=== PATIENT | male | born 1965 | race Two or more races ===

== ENCOUNTER 2017-03-04 19:39 | Emergency (ER) | payer OTHER ==
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
[~2017-03-04 19:39] MED LIST: ACETAMINOPHEN PO; NO MEDICATIONS; VICODIN 5/1 TAB 5/50 PO; VOLTAREN50 MG PO; VOLTAREN75 MG PO
[2017-03-04 20:29] LABS: BASOPHIL# 0.1 X10e3 (0-0.3); BASOPHIL% 2.2 % (0-2.5); EOSINOPHIL# 0.1 X10e3 (0-0.7); EOSINOPHIL% 2.2 % (0.0-7.0); HEMATOCRIT 37.7 % (38.0-50.0); HEMOGLOBIN 12.9 gm/dL (13.0-16.0); LYMPHOCYTE# 1.4 X10e3 (1.0-3.5); LYMPHOCYTE% 35.3 % (17.0-45.0); MEAN CELL VOLUME 100.6 FL (83-96); MEAN CORPUSCULAR HEMOGLOBIN 34.4 PG (28-34); MEAN CORPUSCULAR HGB CONC 34.2 g/dL (30-36); MONOCYTE# 0.4 X10e3 (0-1.0); MONOCYTE% 9.3 % (3.0-12.0); PLATELET COUNT 131 X10e3 (140-420); RED BLOOD COUNT 3.74 X10e (3.90-5.60); RED CELL DISTRIBUTION WIDTH 13.9 % (11.0-15.5); WHITE BLOOD COUNT 3.9 X10e3 (4.0-10.5)
[2017-03-04 20:31] LABS: DIFF IND NO
[2017-03-04 20:47] LABS: CALCIUM SERUM 8.7 mg/dL (8.4-10.2); CREATININE SERUM 0.5 mg/dL (0.6-1.4); GLOM FILT RATE Estimated 124.6 mL/min (>60); POTASSIUM 3.6 mmol/L (3.5-5.1)
[2017-03-04 20:55] LABS: URINE SOURCE CLEAN CATCH
[2017-03-04 20:58] LABS: URINE APPEARANCE CLEAR; URINE BILIRUBIN NEG (NEG); URINE BLOOD NEG (NEG); URINE COLOR YELLOW; URINE GLUCOSE NEG (NORM); URINE KETONE NEG (NEG); URINE LEUKOCYTE ESTERASE NEG (NEG); URINE NITRATE NEG (NEG); URINE PH 5.5 (5-8); URINE PROTEIN NEG (NEG); URINE SPECIFIC GRAVITY <=1.005 (1.003-1.035); URINE UROBILINOGEN 0.2 MG/DL (NORM)
[2017-03-04 21:00] LABS: MICRO INDICATED? NO
[2017-03-04 21:08] LABS: AMPHETAMINE NEG (NEG); BARBITURATES NEG (NEG); BENZODIAZEPINES NEG (NEG); COCAINE NEG (NEG); MARIJUANA NEG (NEG); OPIATES NEG (NEG); TRICYCLIC ANTIDEPRESSANTS NEG (NEG); U METHADONE NEG (NEG)
== END 2017-03-05 07:21 | disposition home or self-care (01) ==
LOC: SED 19:39
PROVIDERS: Emergency Medicine
DX: S13.4XXA Sprain of ligaments of cervical spine, initial encounter (principal); S00.83XA Contusion of other part of head, initial encounter; F10.10 Alcohol abuse, uncomplicated; X58.XXXA Exposure to other specified factors, initial encounter; Y92.69 Other specified industrial and construction area as the place of occurrence of the external cause
CPT/HCPCS: 36415; 70450; 70486; 72125; 80048; 80307; 81003; 85025; 96374; 96375; 99284; G0480; J3411; J3475

== ENCOUNTER 2017-04-15 15:46 | Emergency (ER) | payer OTHER ==
--- NOTE | ~2017-04-15 | CT71 ---
[facility] A Service [facility] RADIOLOGY TEXT RESULTS PATIENT: CONNIE WOODS LOCATION: SED : 63 UNIT #: [id number] AGE: [address]: Fabricio Jay MD SEX: M ORDER DR: [id number] [place] [address] [id number] E MR#: [id number] Acc #: [id number] NAME: CONNIE WOODS : 1965 SEX: M STUDY DATE/TIME: 04/15/2017 16:31 UNIT: SED ROOM: STUDY DESCRIPTION: CT Head Wo Contrast Attending Physician: Fabricio Jay M.D. Ordering Physician: Fabricio Jay M.D. Primary Care Physician: Geo Frederick M.D. MEDICAL IMAGING REPORT This report is preliminary unless electronic signature is present. EXAM CT brain without contrast HISTORY Seizure today. TECHNIQUE This CT exam was performed with one or more of the following radiation dose reduction techniques: automatic exposure control, adjustment of mA and/or kV according to patient size, and iterative reconstruction. FINDINGS CT brain without contrast demonstrates no intracranial hemorrhage, mass or edema. No midline shift or ventricular dilatation or extraaxial fluid collection. Exam sensitivity partly limited by motion. Opacification of the visualized superior left maxillary sinus. IMPRESSION 1. Negative CT brain. 2. Opacified left maxillary sinus. Dictated by... Lit Hanley M.D. THIS IS AN ELECTRONICALLY VERIFIED REPORT Lit Hanley M.D. at 04/15/2017 11:14 PM DFL/pcl TD: 04/15/2017 22:59 JOB #: [id number] [facility] A Service [facility] RADIOLOGY TEXT RESULTS PATIENT: CONNIE WOODS LOCATION: SED : 63 UNIT #: [id number] AGE: [address]: Fabricio Jay MD SEX: M ORDER DR: MEDICAL IMAGING REPORT Page 1 of 1
--- NOTE | ~2017-04-15 | CR72 ---
[facility] A Service of [facility] RADIOLOGY TEXT RESULTS PATIENT: CONNIE WOODS LOCATION: SED : 63 UNIT #: [id number] AGE: [address]: Fabricio Jay MD SEX: M ORDER DR: [id number] [place] [address] [id number] E MR#: [id number] Acc #: [id number] NAME: CONNIE WOODS : 1965 SEX: M STUDY DATE/TIME: 04/15/2017 16:50 UNIT: SED ROOM: STUDY DESCRIPTION: CR Chest Single View Portable Attending Physician: Fabricio Jay M.D. Ordering Physician: Fabrciio Jay M.D. Primary Care Physician: Geo Frederick M.D. MEDICAL IMAGING REPORT This report is preliminary unless electronic signature is present. EXAM Portable AP view of the chest COMPARISON June 12, 2012. INDICATION 51-year-old male with sudden onset of dyspnea and oxygen desaturation today. FINDINGS Cardiomediastinal silhouette is within normal limits. No evidence of pneumothorax. Prominence of the pulmonary interstitium appears stable going back to 2011. No evidence of acute airspace disease or pleural effusion. Healed fracture of the distal right clavicle. This is new from 2011. IMPRESSION No acute radiographic abnormality of the chest. Healed fracture of the right clavicle, new from 2011. Dictated by... Sivakumar Kim M.D. THIS IS AN ELECTRONICALLY VERIFIED REPORT Sivakumar Kim M.D. at 04/20/2017 8:04 PM BLM/bert TD: 04/15/2017 22:59 JOB #: [id number] [facility] A Service of [facility] RADIOLOGY TEXT RESULTS PATIENT: CONNIE WOODS LOCATION: SED : 63 UNIT #: [id number] AGE: [address]: Fabricio Jay MD SEX: M ORDER DR: MEDICAL IMAGING REPORT Page 1 of 1
[2017-04-15 16:58] LABS: BASOPHIL# 0.1 X10e3 (0-0.3); BASOPHIL% 0.9 % (0-2.5); EOSINOPHIL% 0.1 % (0.0-7.0); HEMATOCRIT 43.6 % (38.0-50.0); HEMOGLOBIN 14.9 gm/dL (13.0-16.0); LYMPHOCYTE# 0.5 X10e3 (1.0-3.5); LYMPHOCYTE% 8.3 % (17.0-45.0); MEAN CELL VOLUME 104.1 FL (83-96); MEAN CORPUSCULAR HEMOGLOBIN 35.7 PG (28-34); MEAN CORPUSCULAR HGB CONC 34.3 g/dL (30-36); MONOCYTE# 0.8 X10e3 (0-1.0); MONOCYTE% 13.5 % (3.0-12.0); NEUTROPHIL# 4.7 X10e3 (1.5-7.1); NEUTROPHIL% 77.2 % (40-75); PLATELET COUNT 143 X10e3 (140-420); RED BLOOD COUNT 4.18 X10e (3.90-5.60); WHITE BLOOD COUNT 6.1 X10e3 (4.0-10.5)
[2017-04-15 17:03] LABS: DIFF IND NO
[2017-04-15 17:09] LABS: ALBUMIN SERUM 4.6 g/dL (3.5-5.0); BILIRUBIN,TOTAL 1.2 mg/dL (0.2-2.0); BUN/CREATININE RATIO 8.57; CALCIUM SERUM 9.9 mg/dL (8.4-10.2); CREATININE SERUM 0.7 mg/dL (0.6-1.4); GLOM FILT RATE Estimated 108.5 mL/min (>60); POTASSIUM 3.7 mmol/L (3.5-5.1); PROTEIN TOTAL SERUM 9.2 g/dL (6.0-8.3)
[2017-04-15 17:38] LABS: URINE SOURCE CLEAN CATCH
[2017-04-15 17:39] LABS: POC - CKMB 3.7 ng/mL (0.0-7.9); POC - TROPONIN <0.05 ng/mL (<=0.05)
[2017-04-15 17:42] LABS: MICRO INDICATED? YES; URINE APPEARANCE CLEAR; URINE BILIRUBIN NEG (NEG); URINE BLOOD 1+ (NEG); URINE COLOR YELLOW; URINE GLUCOSE NEG (NORM); URINE KETONE TRACE (NEG); URINE LEUKOCYTE ESTERASE NEG (NEG); URINE NITRATE NEG (NEG); URINE PH 6.5 (5-8); URINE PROTEIN 1+ (NEG)
[2017-04-15 17:52] LABS: AMPHETAMINE NEG (NEG); BARBITURATES NEG (NEG); BENZODIAZEPINES NEG (NEG); COCAINE NEG (NEG); MARIJUANA NEG (NEG); OPIATES NEG (NEG); TRICYCLIC ANTIDEPRESSANTS NEG (NEG); U METHADONE NEG (NEG)
[2017-04-15 17:56] LABS: CULTURE INDICATED? NO; URINE BACTERIA NEG (NEG); URINE WBC 0-2 /[HPF] (0-5)
[2017-04-15 17:57] LABS: URINE GRANULAR CAST 0-2 /[HPF]; URINE HYALINE CAST 0-2 /[HPF]; URINE MUCUS PRESENT; URINE SQUAMOUS EPITHELIAL CELL OCCAS /[HPF]; URINE TRANSITIONAL EPI CELLS OCCAS /[HPF]
== END 2017-04-15 18:17 | disposition left against medical advice (07) ==
LOC: SED 15:46
PROVIDERS: Emergency Medicine
DX: R56.9 Unspecified convulsions (principal); F17.200 Nicotine dependence, unspecified, uncomplicated; Z79.899 Other long term (current) drug therapy
CPT/HCPCS: 36415; 70450; 71010; 80053; 80307; 81003; 82140; 82553; 82947; 83880; 84484; 85025; 94640; 96361; 96374; 96375; 96376; 99284; G0480; J2060; J2405